=== PATIENT | male | born 1945 | race Caucasian/White ===

== ENCOUNTER 2018-03-20 06:46 | Day surgery (SDC) | payer MEDICARE, OTHER ==
[2018-03-20] MEDS ORDERED: Lactated Ringer's 1,000 ML IV ONE (08:44)
[2018-03-20] MEDS ORDERED: Propofol 10 mg/ml Inj (20 ML) ONE (08:45)
--- NOTE | 2018-03-20 08:45 | CP.SDSHP ---
Same Day Surgery H & P - History Proposed Procedure: COLONSCOPY Pre-Op Diagnosis: SEE NOTES - Previous Medical/Surgical History Cardiac: Hypertension Pulmonary: Other Endocrine/Metabolic: Diabetes Misc: Other Pain: 2.Mild Pain - Allergies Allergies: Allergies No Known Allergies Allergy (Verified 03/11/18 16:24) - Physical Exam General Appearance: N Vital Signs: Vital Signs 03/20/18 07:26 Temperature 97.3 F L Pulse Rate 98 H Respiratory 20 Rate Blood Pressure 132/80 O2 Sat by Pulse 99 Oximetry Neuro: WNL Heart: Other Lungs: Other GI: WNL - {Optional Preform as Required} Breast: WNL Abdomen: Other Rectal: Other Integument: WNL : WNL Ortho: WNL ENT: Other - Impression Pt. Evaluated Today:Candidate for Anesthesia & Procedure: Yes - Date & Time Time: 08:45 Short Stay Discharge - Short Stay Discharge Admitting Diagnosis/Reason for Visit: ENCOUNTER FOR SCREENING FOR MALIGNANT NEOPLASM OF Disposition: HOME/ ROUTINE
[2018-03-20] MEDS ORDERED: Belladonna-Phenobarbital PO ONE (09:30)
[2018-03-20 09:34] VITALS: TEMP 97.8
[2018-03-20 10:27] VITALS: RESP 20; O2SAT 99
[2018-03-20 11:29] VITALS: BP 120/78; PULSE 77
== END 2018-03-20 10:05 | disposition home or self-care (01) ==
LOC: C.ENDO 06:46
PROVIDERS: ATTEND Specialist
DX: Z12.11 Encounter for screening for malignant neoplasm of colon (principal); K64.8 Other hemorrhoids; K64.4 Residual hemorrhoidal skin tags; E11.9 Type 2 diabetes mellitus without complications; I10 Essential (primary) hypertension
CPT/HCPCS: 45380; 82948; 88305; J2704; J7120